=== PATIENT | female | born 1950 | race Caucasian/White ===

== ENCOUNTER 2021-09-24 00:53 | Emergency (ER) | payer MEDICARE, OTHER ==
[2021-09-24 01:15] VITALS: BP 163/72; PULSE 83
--- NOTE | 2021-09-24 02:17 | EDM.PDOC ---
ED HPI GENERAL MEDICAL PROBLEM - General Chief Complaint: Respiratory Problem Stated Complaint: LOW OXYGEN LEVEL/COUGH Time Seen by Provider: 09/24/21 02:05 - History of Present Illness INITIAL COMMENTS - FREE TEXT/NARRATIVE: 70-year-old female presents the emergency room with lowering oxygen levels. Patient has had Covid she has been evaluated in the clinic she is scheduled to get monoclonal antibody therapy today. Patient is on room air. She was diagnosed in the Covid clinic she said had recent labs and x-rays done here I did review her labs that are suggestive of Covid and her chest x-ray is consistent with a developing Covid pneumonia. This evening patient noticed that her O2 saturation with little home O2 monitor would drop to 88 to 90%. Here in the emergency room she does this at its worst most the time she is in the low 90s. We have watched this for quite some time and this is been a pretty stable pattern. - Related Data Allergies Allergy/AdvReac Type Severity Reaction Status Date / Time amoxicillin [From Augmentin] Allergy Hives Verified 09/24/21 01:15 clavulanic acid Allergy Hives Verified 09/24/21 01:15 [From Augmentin] minocycline Allergy Cannot Verified 09/24/21 01:15 Remember Home Meds: Home Meds Alendronate [Fosamax] 1 tab PO WEEKLY 11/04/16 [History] Calcium Carbonate [Calcium] 1 tab PO BID 11/04/16 [History] Fish Oil/[place]-3 Fatty Acids [Fish Oil 1,000 MG] 1 cap PO BID 11/04/16 [History] Red Yeast Rice 1 tab PO BID 11/04/16 [History] Zyflamend 1 tab PO BID 11/04/16 [History] Past Medical History HEENT History: Reports: Impaired Vision Gastrointestinal History: Reports: Other (See Below) Other Gastrointestinal History: luq pain Musculoskeletal History: Reports: Osteoporosis - Infectious Disease History Infectious Disease History: Reports: Novel Coronavirus - Past Surgical History HEENT Surgical History: Reports: Oral Surgery GI Surgical History: Reports: Appendectomy Female Surgical History: Reports: Tubal Ligation Social & Family History - Tobacco Use Tobacco Use Status *Q: Never Tobacco User - Caffeine Use Caffeine Use: Reports: None - Recreational Drug Use Recreational Drug Use: No ED ROS GENERAL - Review of Systems Review Of Systems: See Below Constitutional: Reports: Fever, Weakness, Fatigue, Decreased Appetite HEENT: Reports: No Symptoms Respiratory: Reports: Cough. Denies: Shortness of Breath, Hemoptysis Cardiovascular: Reports: No Symptoms Endocrine: Reports: No Symptoms GI/Abdominal: Reports: No Symptoms : Reports: No Symptoms Musculoskeletal: Reports: No Symptoms Skin: Reports: No Symptoms Neurological: Reports: No Symptoms Psychiatric: Reports: No Symptoms Hematologic/Lymphatic: Reports: No Symptoms ED EXAM, GENERAL - Physical Exam Exam: See Below Exam Limited By: No Limitations General Appearance: Alert, No Apparent Distress Eye Exam: Bilateral Eye: Normal Inspection Ears: Normal External Exam Nose: Normal Inspection, Normal Mucosa, No Blood Throat/Mouth: Normal Inspection, Normal Lips, Normal Teeth, Normal Gums, Normal Oropharynx, Normal Voice, No Airway Compromise Head: Atraumatic Neck: Normal Inspection, Supple, Non-Tender, Full Range of Motion. No: Lymphadenopathy (L), Lymphadenopathy (R) Respiratory/Chest: No Respiratory Distress, Lungs Clear, Normal Breath Sounds Cardiovascular: Normal Peripheral Pulses, Regular Rate, Rhythm, No Edema GI/Abdominal: Normal Bowel Sounds, Soft, Non-Tender Back Exam: Normal Inspection. No: CVA Tenderness (L), CVA Tenderness (R) Extremities: Normal Inspection, No Pedal Edema Neurological: Alert, Oriented, Normal Cognition Course - Vital Signs Last Recorded V/S: Last Vital Signs Temp 36.6 C 09/24/21 01:10 Pulse 83 09/24/21 01:10 Resp 22 H 09/24/21 01:10 BP 163/72 H 09/24/21 01:10 Pulse Ox 91 L 09/24/21 01:10 - Re-Assessments/Exams Free Text/Narrative Re-Assessment/Exam: 09/24/21 03:32 Patient has had recent x-rays and labs this was not repeated I watched her O2 saturation she is actually done pretty well here she at rare times is dropped to 88% but usually she is 90 to 93%. I discussed this with the patient she does not quite qualify for oxygen. We discussed things that home she can do to improve her oxygenation such as lying in the prone position. This does bother her back I recommended perhaps she try laying on her sides to see if this would perhaps help a little bit. Departure - Departure Time of Disposition: 03:33 Disposition: Home, Self-Care 01 Clinical Impression: Pneumonia due to COVID-19 virus - Discharge Information Referrals: Rosa Brownlee PA-C [Primary Care Provider] - Forms: ED Department Discharge Additional Instructions: Return to the emergency room with any questions problems or worsening symptoms. As we discussed you are scheduled for monoclonal antibody therapy today follow- up with us. It may help. Return to the emergency room if your O2 saturation continually is in the upper 80s or lower. Bring your home O2 monitor and with you when you come in for the monoclonal antibody therapy and see how close it reads to the one they have. Sepsis Event Note (ED) - Evaluation Sepsis Screening Result: No Definite Risk - Focused Exam Vital Signs: Vital Signs Temp Pulse Resp BP Pulse Ox 09/24/21 01:10 36.6 C 83 22 H 163/72 H 91 L
== END 2021-09-24 03:45 | disposition home or self-care (01) ==
LOC: JD.ED 00:53
DX: U07.1 COVID-19 (principal); J12.82 Pneumonia due to coronavirus disease 2019; Z88.0 Allergy status to penicillin; Z88.1 Allergy status to other antibiotic agents
CPT/HCPCS: 99283

== ENCOUNTER 2022-03-21 13:14 | Emergency (ER) | payer MEDICARE, OTHER ==
[2022-03-21 13:27] VITALS: BP 199/106; PULSE 88
== END 2022-03-21 14:15 | disposition home or self-care (01) ==
LOC: JD.ED 13:14
DX: L50.9 Urticaria, unspecified (principal); E66.9 Obesity, unspecified; Z68.30 Body mass index [BMI] 30.0-30.9, adult; Z88.0 Allergy status to penicillin; Z88.1 Allergy status to other antibiotic agents; Z86.16 Personal history of COVID-19
CPT/HCPCS: 99282

== ENCOUNTER 2022-04-02 06:18 | Emergency (ER) | payer MEDICARE, OTHER ==
[2022-04-02] MEDS ORDERED: Ketorolac 60 MG/2 ML SDV IM ONE (08:08)
[2022-04-02] MEDS ORDERED: predniSONE 20 MG Tab PO ONE (08:09)
[2022-04-02 08:34] VITALS: BP 191/85; PULSE 76
[2022-04-02] MEDS ORDERED: Lidocaine 4% 1 each Patch TOP SCH (09:00)
== END 2022-04-02 09:10 | disposition home or self-care (01) ==
LOC: JD.ED 06:18
DX: M62.830 Muscle spasm of back (principal); G62.9 Polyneuropathy, unspecified; E66.9 Obesity, unspecified; Z88.0 Allergy status to penicillin; Z88.1 Allergy status to other antibiotic agents; Z68.31 Body mass index [BMI] 31.0-31.9, adult
CPT/HCPCS: 96372; 99283; J1885; J7512

== ENCOUNTER 2022-09-18 20:37 | Emergency (ER) | payer MEDICARE, OTHER ==
[2022-09-18] MEDS ORDERED: Sodium Chloride 0.9% 10 ML Syringe FLUSH PRN (21:52)
[2022-09-18 22:09] VITALS: BP 179/104; PULSE 87
== END 2022-09-18 23:15 | disposition home or self-care (01) ==
LOC: JD.ED 20:37
DX: I42.2 Other hypertrophic cardiomyopathy (principal); E66.9 Obesity, unspecified; Z68.33 Body mass index [BMI] 33.0-33.9, adult; Z88.0 Allergy status to penicillin; Z88.1 Allergy status to other antibiotic agents; Z79.899 Other long term (current) drug therapy; Z86.16 Personal history of COVID-19; Z90.49 Acquired absence of other specified parts of digestive tract
CPT/HCPCS: 36415; 71045; 71045-26; 80053; 83735; 84484; 85025; 93005; 99284

== ENCOUNTER 2022-12-24 14:49 | Emergency (ER) | payer MEDICARE, OTHER ==
[2022-12-24 15:11] VITALS: BP 180/83; PULSE 72
== END 2022-12-24 17:10 | disposition home or self-care (01) ==
LOC: JD.ED 14:49
DX: S82.831A Other fracture of upper and lower end of right fibula, initial encounter for closed fracture (principal); E66.9 Obesity, unspecified; Z68.32 Body mass index [BMI] 32.0-32.9, adult; Z79.899 Other long term (current) drug therapy; W00.0XXA Fall on same level due to ice and snow, initial encounter
CPT/HCPCS: 29515; 73610-26-RT; 73610-RT; 99283

== ENCOUNTER 2024-05-01 00:50 | Emergency (ER) | payer MEDICARE, OTHER ==
[2024-05-01] MEDS: hydrALAZINE 20 MG/ML SDV IVPUSH ONE (01:16)
[2024-05-01] MEDS: Sodium Chloride 0.9% 10 ML Syringe FLUSH PRN (01:16)
[2024-05-01 01:41] LABS: BASOPHILS ABSOLUTE AUTO 0.1 K/mm3 (0.0-0.2); BASOPHILS PERCENT AUTO 0.8 % (0.0-1.0); EOSINOPHILS ABSOLUTE AUTO 0.2 K/mm3 (0.0-0.4); EOSINOPHILS PERCENT AUTO 2.3 % (0.0-6.0); HEMATOCRIT 39.7 % (37.0-47.0); HEMOGLOBIN 13.2 gm/dl (12.0-16.0); IMMATURE GRAN ABSOLUTE AUTO 0.01 K/mm3 (0.00-0.05); IMMATURE GRAN PERCENT AUTO 0.2 % (0.0-0.4); LYMPHOCYTES ABSOLUTE AUTO 2.6 K/mm3 (1.0-4.8); LYMPHOCYTES PERCENT AUTO 39.9 % (24.0-44.0); MEAN CORPUSCULAR HEMOGLOBIN 29.6 pg (28.0-32.0); MEAN CORPUSCULAR HGB CONC 33.2 g/dl (32.0-36.0); MEAN PLATELET VOLUME 8.8 fl (9.4-12.3); MONOCYTES ABSOLUTE AUTO 0.5 K/mm3 (0.0-0.8); MONOCYTES PERCENT AUTO 7.5 % (0.0-8.0); NEUTROPHILS ABSOLUTE AUTO 3.2 K/mm3 (1.8-7.7); NEUTROPHILS PERCENT AUTO 49.3 % (41.0-71.0); PLATELET COUNT,PLT 241 K/mm3 (150-400); RED BLOOD CELL COUNT 4.46 M/mm3 (4.10-5.30); WHITE BLOOD CELL COUNT,WBC 6.42 K/mm3 (3.9-11.3)
[2024-05-01 02:05] LABS: D-DIMER QUANTITATIVE 0.5 mg/L (0.19-0.50); INR 0.96; PROTHROMBIN TIME 10.3 SECONDS (9.7-12.0)
[2024-05-01 02:06] LABS: PTT,PARTIAL THROMBOPLSTIN TIME 26.8 SECONDS (21.7-31.4)
[2024-05-01 02:16] LABS: ALBUMIN 3.8 g/dl (3.4-5.0); ANION GAP 16.6 (5-15); BILIRUBIN TOTAL 0.4 mg/dL (0.2-1.0); CALCIUM 10.1 mg/dL (8.5-10.1); CREATININE 0.9 mg/dL (0.55-1.02); EST CRCL DRUG DOSING (CG) 40.75 mL/min; MAGNESIUM 1.8 mg/dL (1.8-2.4); POTASSIUM,K 3.6 mEq/L (3.5-5.1); PROTEIN TOTAL,TP 7.8 g/dl (6.4-8.2)
[2024-05-01 02:47] VITALS: BP 153/70
[2024-05-01] MEDS: hydrALAZINE 10 MG Tab PO ONE (02:47)
[2024-05-01 02:50] VITALS: PULSE 95
== END 2024-05-01 02:49 | disposition home or self-care (01) ==
LOC: JD.ED 00:50
DX: I10 Essential (primary) hypertension (principal); Z79.899 Other long term (current) drug therapy; Z86.16 Personal history of COVID-19; Z90.49 Acquired absence of other specified parts of digestive tract
CPT/HCPCS: 36415; 71045; 71045-26; 80053; 83735; 83880; 84484; 85025; 85379; 85610; 85730; 93005; 93010; 96374; 99284; 99284-25; A9270-GY; J0360; J3490